=== PATIENT | female | born 1945 | race Caucasian/White ===

== ENCOUNTER 2023-12-11 09:20 | Inpatient (IN) | payer MEDICARE, BC ==
[~2023-12-11] VITALS: Ht 154.9 cm; Wt 45.0 kg
[2023-12-11 09:57] LABS: BASOPHILS % (AUTO) 0.1 % (0-1); EOSINOPHILS % (AUTO) 0 % (0-6); HEMATOCRIT 36.3 % (35.0-45.0); HEMOGLOBIN 12.5 g/dl (12.0-16.0); LYMPHOCYTES # (AUTO) 0.6 X10'3 (1.1-4.8); LYMPHOCYTES % (AUTO) 6.5 % (21-51); MEAN CORPUSCULAR HEMOGLOBIN 34.2 PG (27.0-31.0); MEAN CORPUSCULAR HGB CONC 34.4 g/dL (33.0-36.5); MEAN CORPUSCULAR VOLUME 99.5 FL (78-98); MEAN PLATELET VOLUME 7.3 FL (7.4-10.4); MONOCYTES # (AUTO) 0.5 X10'3 (0-0.9); MONOCYTES % (AUTO) 4.8 % (2-12); NEUTROPHILS # (AUTO) 8.6 X10'3 (1.8-7.7); NEUTROPHILS % (AUTO) 88.6 % (42-75); PLATELET COUNT 264 X10'3 (140-440); RED BLOOD COUNT 3.65 X10'6 (4.20-5.60); RED CELL DISTRIBUTION WIDTH 11.9 % (11.5-14.5); WHITE BLOOD COUNT 9.7 X10'3 (4.5-11.0)
[2023-12-11 10:00] LABS: ALBUMIN 3.6 G/DL (3.4-5.0); ANION GAP 4 (8-16); BLOOD UREA NITROGEN 9 MG/DL (7-18); BUN/CREATININE RATIO 15.5 (10.0-20.0); CALCIUM 8.1 MG/DL (8.5-10.1); CHLORIDE 91 MMOL/L (99-107); CREATININE 0.58 MG/DL (0.40-0.90); GLUCOSE 89 MG/DL (70-104); LIPASE 58 U/L (16-77); POTASSIUM 3.8 MMOL/L (3.5-5.1); SODIUM 123 MMOL/L (135-145); TOTAL CARBON DIOXIDE 27.8 MMOL/L (24-32); eCRCL 57 ML/MIN; eGFR > 90 ML/MIN
[2023-12-11 11:44] LABS: ALANINE AMINOTRANSFERASE 23 U/L (12-78); ALBUMIN/GLOBULIN RATIO 1.2 (1.1-1.5); ALKALINE PHOSPHATASE 35 IU/L (46-116); ASPARTATE AMINO TRANSFERASE 30 U/L (10-37); BILIRUBIN,DIRECT 0.2 MG/DL (0-0.3); BILIRUBIN,TOTAL 0.6 MG/DL (0.1-1.0); TOTAL PROTEIN 6.7 G/DL (6.4-8.2)
[2023-12-11 11:50] LABS: BILIRUBIN,URINE NEGATIVE (Neg); CLARITY,URINE CLEAR (Clear); COLOR,URINE YELLOW (Yellow); GLUCOSE, URINE NEGATIVE (Neg); KETONES,URINE 40 mg/dl (Neg); LEUKOCYTE ESTERASE ,URINE NEGATIVE (Neg); NITRITES, URINE NEGATIVE (Neg); OCCULT BLOOD,URINE NEGATIVE (Neg); PH,URINE 7.5 (4.8-8.0); PROTEIN,URINE NEGATIVE (Neg); UROBILINOGEN,URINE 0.2 E.U/dL (0.2-1.0)
[2023-12-11 11:56] LABS: UA COLLECTION TYPE NON-SPECIFIED
[2023-12-11 12:07] LABS: ETHANOL < 10 MG/DL (<10)
[2023-12-11] MEDS: predniSONE 20 mg tablet PO ONE (14:27)
[2023-12-11] MEDS: ondansetron 4mg rapidly disintigrating tab PO ONE (14:27)
[2023-12-11] MEDS: normal saline 1000ml 1,000 ML IV SCH (14:27)
[2023-12-11] MEDS ORDERED: potassium Cl 20 mEq SR tablet PO PRN ×2 (14:30)
[2023-12-11] MEDS ORDERED: potassium Cl 40MEQ/1/2NS 520ml 520 ML IV PRN (14:30)
[2023-12-11] MEDS ORDERED: magnesium hydroxide 30ml (MOM) UD suspension PO PRN (14:30)
[2023-12-11] MEDS ORDERED: mag hydrox/Alum hydrox/simeth 30ml oral suspension PO PRN (14:30)
[2023-12-11] MEDS ORDERED: acetaminophen 325mg tablet PO PRN (14:30)
[2023-12-11] MEDS ORDERED: magnesium sulf-water 2g/50mL 50 ML IV PRN (14:30)
[2023-12-11] MEDS ORDERED: magnesium sulf-water 4G/100mL 100 ML IV PRN (14:30)
[2023-12-11] MEDS ORDERED: ondansetron/PF 4mg/2ml inj IV PRN (14:30)
[2023-12-11] MEDS ORDERED: magnesium Cl slow-release 64mg tablet PO PRN (14:30)
[2023-12-11 14:53] LABS: OSMOLALITY 256 MOSM/K (280-300)
[2023-12-11 16:05] LABS: PRO BRAIN NATRIURETIC PEPTIDE 566 PG/ML (0-450)
[2023-12-11] MEDS ORDERED: HYDR200T73 PO (17:25)
[2023-12-11] MEDS: furosemide 10 MG/1 ML 10ml inj IV ONE (17:46)
[2023-12-11 18:00] VITALS: BP 129/57; PULSE 61; RESP 16; TEMP 98.7; O2SAT 96
[2023-12-11] MEDS ORDERED: ipratropium/albuterol 3ml nebule NEB PRN (18:00)
[2023-12-11] MEDS ORDERED: LISI5TAB22 PO (19:39)
[2023-12-11] MEDS ORDERED: ATOR10TA70 PO (19:39)
[2023-12-11] MEDS: K and/or MAG REPLACEMENT MC SCH (20:00)
[2023-12-11] MEDS: docusate sod 100mg capsule PO SCH (20:00)
[2023-12-11 20:01] LABS: ALBUMIN 3.6 G/DL (3.4-5.0); ANION GAP 7 (8-16); BLOOD UREA NITROGEN 12 MG/DL (7-18); BUN/CREATININE RATIO 17.9 (10.0-20.0); CALCIUM 8.3 MG/DL (8.5-10.1); CHLORIDE 95 MMOL/L (99-107); CREATININE 0.67 MG/DL (0.40-0.90); GLUCOSE 166 MG/DL (70-104); POTASSIUM 4.2 MMOL/L (3.5-5.1); SODIUM 127 MMOL/L (135-145); THYROID STIMULATING HORMONE 0.98 ulU/ml (0.34-4.50); TOTAL CARBON DIOXIDE 25.2 MMOL/L (24-32); eCRCL 49 ML/MIN; eGFR 85 ML/MIN
[2023-12-11] MEDS ORDERED: NETA2.5D EACHEYE (20:03)
[2023-12-11] MEDS ORDERED: BRIM5DRO6 LEFTEYE (20:03)
[2023-12-11 22:00] VITALS: BP 112/62; PULSE 76; RESP 14; TEMP 97.5; O2SAT 96
[2023-12-11 23:14] VITALS: PULSE 72; RESP 16; O2SAT 97
[2023-12-11 23:55] LABS: ALBUMIN 3.3 G/DL (3.4-5.0); ANION GAP 7 (8-16); BLOOD UREA NITROGEN 14 MG/DL (7-18); BUN/CREATININE RATIO 19.7 (10.0-20.0); CALCIUM 8.2 MG/DL (8.5-10.1); CHLORIDE 97 MMOL/L (99-107); CREATININE 0.71 MG/DL (0.40-0.90); GLUCOSE 126 MG/DL (70-104); POTASSIUM 3.9 MMOL/L (3.5-5.1); SODIUM 129 MMOL/L (135-145); TOTAL CARBON DIOXIDE 25.2 MMOL/L (24-32); eCRCL 46 ML/MIN; eGFR 80 ML/MIN
[2023-12-12] VITALS (7 sets, daily range): BP systolic 119–133; BP diastolic 47–72; PULSE 58–71; RESP 13–15; TEMP 97.5–99.6; O2SAT 94–98
[2023-12-12 06:51] LABS: BASOPHILS % (AUTO) 0.1 % (0-1); EOSINOPHILS % (AUTO) 0.1 % (0-6); HEMOGLOBIN 12.2 g/dl (12.0-16.0); LYMPHOCYTES # (AUTO) 0.9 X10'3 (1.1-4.8); LYMPHOCYTES % (AUTO) 13.4 % (21-51); MEAN CORPUSCULAR HEMOGLOBIN 33.8 PG (27.0-31.0); MEAN CORPUSCULAR VOLUME 99.6 FL (78-98); MEAN PLATELET VOLUME 7.6 FL (7.4-10.4); MONOCYTES # (AUTO) 0.7 X10'3 (0-0.9); MONOCYTES % (AUTO) 10.8 % (2-12); NEUTROPHILS % (AUTO) 75.6 % (42-75); PLATELET COUNT 266 X10'3 (140-440); RED BLOOD COUNT 3.61 X10'6 (4.20-5.60); RED CELL DISTRIBUTION WIDTH 12.4 % (11.5-14.5); WHITE BLOOD COUNT 6.7 X10'3 (4.5-11.0)
[2023-12-12 07:19] LABS: ANION GAP 5 (8-16); BLOOD UREA NITROGEN 12 MG/DL (7-18); BUN/CREATININE RATIO 18.2 (10.0-20.0); CALCIUM 8.1 MG/DL (8.5-10.1); CHLORIDE 99 MMOL/L (99-107); CREATININE 0.66 MG/DL (0.40-0.90); GLUCOSE 104 MG/DL (70-104); POTASSIUM 3.8 MMOL/L (3.5-5.1); SODIUM 130 MMOL/L (135-145); TOTAL CARBON DIOXIDE 25.6 MMOL/L (24-32); eCRCL 50 ML/MIN; eGFR 87 ML/MIN
[2023-12-12 07:20] LABS: ALANINE AMINOTRANSFERASE 23 U/L (12-78); ALBUMIN 3.1 G/DL (3.4-5.0); ALBUMIN/GLOBULIN RATIO 1.1 (1.1-1.5); ALKALINE PHOSPHATASE 31 IU/L (46-116); ASPARTATE AMINO TRANSFERASE 24 U/L (10-37); BILIRUBIN,TOTAL 0.4 MG/DL (0.1-1.0); MAGNESIUM 2.2 MG/DL (1.5-2.4)
[2023-12-12] MEDS: hydroxychloroquine 200mg tablet PO SCH (13:58)
[2023-12-12 14:36] LABS: ALBUMIN 3.2 G/DL (3.4-5.0); ANION GAP 9 (8-16); BLOOD UREA NITROGEN 12 MG/DL (7-18); BUN/CREATININE RATIO 18.5 (10.0-20.0); CALCIUM 8.5 MG/DL (8.5-10.1); CHLORIDE 100 MMOL/L (99-107); CREATININE 0.65 MG/DL (0.40-0.90); GLUCOSE 95 MG/DL (70-104); POTASSIUM 3.7 MMOL/L (3.5-5.1); PRO BRAIN NATRIURETIC PEPTIDE 360 PG/ML (0-450); SODIUM 134 MMOL/L (135-145); TOTAL CARBON DIOXIDE 25.1 MMOL/L (24-32); eCRCL 51 ML/MIN; eGFR 88 ML/MIN
[2023-12-12] MEDS: diphenhydrAMINE 25mg capsule PO ONE (16:35)
[2023-12-12] MEDS ORDERED: PROP10DR15 OP (16:53)
[2023-12-12] MEDS: brimonidine 0.2% 5 ML ophthalmic drops LEFTEYE SCH (19:28)
[2023-12-12 19:57] LABS: ALBUMIN 3.2 G/DL (3.4-5.0); ANION GAP 6 (8-16); BLOOD UREA NITROGEN 16 MG/DL (7-18); BUN/CREATININE RATIO 18.6 (10.0-20.0); CALCIUM 8.2 MG/DL (8.5-10.1); CHLORIDE 101 MMOL/L (99-107); CREATININE 0.86 MG/DL (0.40-0.90); GLUCOSE 134 MG/DL (70-104); POTASSIUM 3.5 MMOL/L (3.5-5.1); SODIUM 134 MMOL/L (135-145); TOTAL CARBON DIOXIDE 26.9 MMOL/L (24-32); eCRCL 38 ML/MIN; eGFR 64 ML/MIN
[2023-12-12] MEDS: NETARSUDIL MESYLATE EACHEYE SCH (20:00)
[2023-12-13 01:40] LABS: ALBUMIN 3.1 G/DL (3.4-5.0); ANION GAP 5 (8-16); BLOOD UREA NITROGEN 14 MG/DL (7-18); BUN/CREATININE RATIO 21.9 (10.0-20.0); CALCIUM 8.4 MG/DL (8.5-10.1); CHLORIDE 103 MMOL/L (99-107); CREATININE 0.64 MG/DL (0.40-0.90); GLUCOSE 99 MG/DL (70-104); POTASSIUM 3.9 MMOL/L (3.5-5.1); SODIUM 136 MMOL/L (135-145); TOTAL CARBON DIOXIDE 27.7 MMOL/L (24-32); eCRCL 51 ML/MIN; eGFR 90 ML/MIN
[2023-12-13 06:36] LABS: BASOPHILS % (AUTO) 0.4 % (0-1); EOSINOPHILS % (AUTO) 0.6 % (0-6); HEMATOCRIT 36.1 % (35.0-45.0); HEMOGLOBIN 12.2 g/dl (12.0-16.0); LYMPHOCYTES # (AUTO) 1.3 X10'3 (1.1-4.8); LYMPHOCYTES % (AUTO) 24.9 % (21-51); MEAN CORPUSCULAR HEMOGLOBIN 33.7 PG (27.0-31.0); MEAN CORPUSCULAR HGB CONC 33.8 g/dL (33.0-36.5); MEAN CORPUSCULAR VOLUME 99.7 FL (78-98); MONOCYTES # (AUTO) 0.6 X10'3 (0-0.9); MONOCYTES % (AUTO) 11.6 % (2-12); NEUTROPHILS # (AUTO) 3.2 X10'3 (1.8-7.7); NEUTROPHILS % (AUTO) 62.5 % (42-75); PLATELET COUNT 242 X10'3 (140-440); RED BLOOD COUNT 3.62 X10'6 (4.20-5.60); RED CELL DISTRIBUTION WIDTH 12.4 % (11.5-14.5); WHITE BLOOD COUNT 5.1 X10'3 (4.5-11.0)
[2023-12-13 06:43] LABS: ALANINE AMINOTRANSFERASE 29 U/L (12-78); ALBUMIN 3.1 G/DL (3.4-5.0); ALKALINE PHOSPHATASE 30 IU/L (46-116); ANION GAP 6 (8-16); ASPARTATE AMINO TRANSFERASE 33 U/L (10-37); BILIRUBIN,TOTAL 0.4 MG/DL (0.1-1.0); BLOOD UREA NITROGEN 13 MG/DL (7-18); CALCIUM 8.2 MG/DL (8.5-10.1); CHLORIDE 103 MMOL/L (99-107); CREATININE 0.65 MG/DL (0.40-0.90); GLUCOSE 99 MG/DL (70-104); MAGNESIUM 2.1 MG/DL (1.5-2.4); POTASSIUM 3.8 MMOL/L (3.5-5.1); SODIUM 138 MMOL/L (135-145); TOTAL CARBON DIOXIDE 28.7 MMOL/L (24-32); TOTAL PROTEIN 6.1 G/DL (6.4-8.2); eCRCL 51 ML/MIN; eGFR 88 ML/MIN
[2023-12-13] MEDS: PROPYLENE GLYCOL 0.6% EACHEYE SCH (08:00)
[2023-12-13 08:10] VITALS: BP 139/60; PULSE 57; RESP 14; TEMP 97.2; O2SAT 98
[2023-12-13] MEDS: atorvastatin 10mg tablet PO SCH (08:33)
[2023-12-13 09:28] VITALS: RESP 14; O2SAT 98
[2023-12-13] MEDS ORDERED: METO-395 PO (10:08)
[2023-12-13] MEDS: metoprolol succinate 25mg (24-HOUR) SR. Tablet PO SCH (10:46)
[2023-12-13 10:57] VITALS: BP 137/56; PULSE 69; RESP 14; TEMP 97.9; O2SAT 97
== END 2023-12-13 13:25 | disposition home or self-care (01) | DRG 915 ==
LOC: ER 09:20 → ED HOLD 14:35 → UNDOADMIN 14:35 → ED HOLD 16:32 → ORTHO 4S 17:30 → ED HOLD 17:30
PROVIDERS: ADMIT Internal Medicine; ATTEND Internal Medicine
DX: T78.3XXA Angioneurotic edema, initial encounter (principal); G93.41 Metabolic encephalopathy; E87.1 Hypo-osmolality and hyponatremia; M32.9 Systemic lupus erythematosus, unspecified; I10 Essential (primary) hypertension; E78.5 Hyperlipidemia, unspecified; J44.9 Chronic obstructive pulmonary disease, unspecified; T46.4X5A Adverse effect of angiotensin-converting-enzyme inhibitors, initial encounter; Y92.89 Other specified places as the place of occurrence of the external cause; Z87.891 Personal history of nicotine dependence
CPT/HCPCS: 36415; 70450; 71045; 80048; 80053; 80076; 80320; 81003; 82570; 83690; 83735; 83880; 83930; 83935; 84300; 84443; 85025; 93306; 94760; 99285; G0378; J1940; J7030; J7512; Q0163